=== PATIENT | female | born 1985 | race Caucasian/White ===

== ENCOUNTER → 2017-03-03 | Outpatient (CLI) | payer MEDICAID | LOC: FIMAGING 18:44 | PROVIDERS: ATTEND Internal Medicine | DX: M51.36 Other intervertebral disc degeneration, lumbar region (principal); M51.16 Intervertebral disc disorders with radiculopathy, lumbar region; M51.17 Intervertebral disc disorders with radiculopathy, lumbosacral region ==

== ENCOUNTER 2017-04-05 17:09 | Emergency (ER) | payer MEDICAID ==
[2017-04-05] MEDS ORDERED: DIAZEPAM 10 MG/2 ML SYR IVP ONE (17:28)
[2017-04-05] MEDS ORDERED: KETOROLAC 15 MG/1 ML SDV IVP ONE (17:28)
[2017-04-05] MEDS ORDERED: DEXAMETHASONE 4 MG/ML VIAL IVP ONE (17:28)
--- NOTE | 2017-04-05 17:33 | EDPHY ---
H & P Stated Complaint: BACK PAIN Source: Patient Exam Limitations: No limitations - Personal History LMP (Females 10-55): Over 28 Days Ago Current Tetanus/Diphtheria Vaccine: Yes Current Tetanus Diphtheria and Acellular Pertussis (TDAP): Yes - Medical/Surgical History Hx Asthma: No Hx Chronic Respiratory Disease: No Hx Diabetes: No Hx Cardiac Disease: No Hx Renal Disease: No Hx Cirrhosis: No Hx Alcoholism: No Hx HIV/AIDS: No Hx Splenectomy or Spleen Trauma: No - Social History Smoking Status: Never smoked Time Seen by Provider: 04/05/17 17:29 HPI/ROS: HPI: This is a 31-year-old female who presents with Chief Complaint: Lower back pain Location: Left lower back Quality: Cramping pain Duration: 1 day Signs and Symptoms: No bleeding, + radiation into left buttock and down to posterior left knee, no numbness, no weakness, no tingling, no incontinence, no decreased range of motion, no dysuria Timing: Acute on chronic Severity: Moderate to severe Context: Patient has a history of low back pain x3 months; extensively worked up outpatient by primary care provider and has been seen by doctor and her power of Neurosurgery. She is pending approval of lumbar GARRETT injections from her insurance company. MRI of the lumbar spine reviewed from 03/03/2017 showing lumbar degenerative disc disease as well as small eccentric leftward prolapse of disc at L5-S1. Patient reports that she has had a upper respiratory infection 4 days ago accompanied by coughing; seen by urgent care and given albuterol inhaler and cough medicine with moderate relief. The coughing episodes though exacerbated her lower back pain. Modifying Factors: Ibuprofen 3 times a day no relief. Comment: ROS: Constitutional: No fever, no chills, no weight loss Eyes: No blurred vision Respiratory: No shortness of breath, no cough Cardiovascular: No chest pain Gastrointestinal: No nausea, no vomiting no diarrhea Genitourinary: No dysuria Extremities: No myalgias Neurologic: No weakness, no numbness Skin: No rashes Hematologic: No bruising, no bleeding MEDICAL/SURGICAL/SOCIAL HISTORY: Tonsillectomy. (Ana Maria Barboza) - Physical Exam Exam: CONSTITUTIONAL: Tearful, anxious young adult white female awake and alert, no obvious distress HEENT: Atraumatic and normocephalic, PERRL, EOMI. Tympanic membranes clear. . Oropharynx clear, no exudate and moist pink mucosa. Airway patent. No lymphadenopathy. No meningismus. Cardiovascular: Normal S1/S2, regular rate, regular rhythm, without murmur rub or gallop. PULMONARY/CHEST: Symmetrical and nontender. Clear to auscultation bilaterally Good air movement. No accessory muscle usage. ABDOMEN: Soft, nondistended, nontender, no rebound, no guarding, no peritoneal signs, no masses or organomegaly. No CVAT. EXTREMITIES: 2/2 pulses, no deformities, no clubbing, no cyanosis or edema. BACK: Mild left lumbar reproducible paraspinous muscle tenderness; no paraspinous spasm. Back flexion 75, extension 30, bilateral lateral bending 35. Pain with left straight leg raise, no pain with right straight leg raise. Able to walk on heels and toes. NEUROLOGICAL: no focal neuro deficits. GCS 15. Light touch sensation intact SKIN: Warm and dry, no erythema. no rash. Good capillary refill. (Ana Maria Barboza) Constitutional: Initial Vital Signs Temperature (C) 36.6 C 04/05/17 17:11 Heart Rate 79 04/05/17 17:11 Respiratory Rate 16 04/05/17 17:11 Blood Pressure 123/77 H 04/05/17 17:11 O2 Sat (%) 97 04/05/17 17:11 O2 Delivery Mode Room Air Allergies/Adverse Reactions: latex Allergy (Verified 04/05/17 17:13) Home Medications: Medication Instructions Recorded methylPREDNISolone [Medrol Dose 1 each PO AD #0 ea 04/05/17 Arturo] oxyCODONE/APAP 5/325 [Percocet 1 - 2 tab PO Q4H PRN #12 tab 04/05/17 5/325 (*)] Medical Decision Making - Diagnostics Imaging Results: Imaging Impressions Chest X-Ray 04/05/17 17:48 Impression: No acute findings in the chest. Procedures: No indication to reimage. Urinalysis and urine ordered. Given IV Decadron, IV Toradol, IV Valium No signs of neurovascular compromise/tenting of skin/compartment syndrome/ extremities and joints examined above and below area of concern and are neurovascularly intact. (Ana Maria Barboza) ED Course/Re-evaluation: Back pain including but not limited to muscular pain, herniated disc, spine fracture, intra-abdominal causes and urinary tract infection. urinalysis, urine ordered 1740: Nurse came and advised that the patient now complains of spitting up bloody sputum intermittently with coughing. Chest x-ray ordered. afebrile. no systemic signs. no signs of hypoxia. 1800: End of Shift: Signed out to Dr. Fowler pending chest x-ray results. Disposition will most likely be discharge home. I have already written for Medrol Dosepak and Percocet as needed for severe breakthrough pain. (Ana Maria Barboza ) Differential Diagnosis: Back pain including but not limited to muscular pain, herniated disc, spine fracture, intra-abdominal causes and urinary tract infection. (Ana Maria Barboza) Other Provider: I was asked by Ana Maria Barboza to follow-up on CXR, and discharge home if normal. I reviewed this CXR, which was read by radiologist as normal. On discharge, the patient had additional questions so I spoke with her. She is still complaining of pain in her left lateral thigh and is sitting in a chair. She is concerned because the pain is not gone. I explained to her that sciatica-type LBP is rarely completely controlled in the ED and that she should follow through with established plan of oxycodone and Medrol dose-arturo as outpatient. She is comfortable with this plan. The patient's UA is abnormal, but I do not think this would likely cause thigh pain, and Jabari's diagnosis is of musculoskeletal back pain - we will send for culture rather than treat currently. (Stu Fowler) - Data Points Laboratory Results: 04/05/17 19:05 Urine Color PALE YELLOW Urine Appearance HAZY Urine pH 5.0 (5.0-7.5) Ur Specific Stevenson 1.005 (1.002-1.030) Urine Protein NEGATIVE (NEGATIVE) Urine Ketones NEGATIVE (NEGATIVE) Urine Blood 1+ H (NEGATIVE) Urine Nitrate NEGATIVE (NEGATIVE) Urine Bilirubin NEGATIVE (NEGATIVE) Urine Urobilinogen NEGATIVE EU EU (0.2-1.0) Ur Leukocyte Esterase 1+ H (NEGATIVE) Urine RBC 3-5 /hpf H /hpf (0-3) Urine WBC 5-10 /hpf H /hpf (0-3) Ur Epithelial Cells TRACE /lpf /lpf (NONE-1+) Urine Bacteria 4+ /hpf H /hpf (NONE SEEN) Urine Mucus TRACE /lpf /lpf (NONE-1+) Urine Glucose NEGATIVE (NEGATIVE) Medications Given: Discontinued Medications Dexamethasone (Decadron Injection) 8 mg IVP EDNOW ONE Stop: 04/05/17 17:29 Last Admin: 04/05/17 18:03 Dose: 8 mg Diazepam (Valium Injection) 5 mg IVP EDNOW ONE Stop: 04/05/17 17:29 Last Admin: 04/05/17 18:03 Dose: 5 mg Ketorolac Tromethamine (Toradol) 15 mg IVP EDNOW ONE Stop: 04/05/17 17:29 Last Admin: 04/05/17 18:02 Dose: 15 mg Departure - Departure Disposition: Home, Routine, Self-Care Clinical Impression: Acute exacerbation of chronic low back pain, Lumbar back pain with radiculopathy affecting left lower extremity, Intervertebral disc disorder Condition: Good Instructions: Oxycodone/Acetaminophen (By mouth), Acute Bronchitis (ED), Lumbar Radiculopathy (ED) Additional Instructions: Follow-up with primary care provider in 5-7 days if symptoms persist or worsen. Keep follow-up appointment with Dr. Fabian Mahan for Lumbar GARRETT. Referrals: Amber Shepherd MD [Primary Care Provider] - As per Instructions Fabian Mahan MD [Medical Doctor] - As per Instructions Prescriptions: methylPREDNISolone [Medrol Dose Arturo] 1 each PO AD #0 ea oxyCODONE/APAP 5/325 [Percocet 5/325 (*)] 1 - 2 tab PO Q4H PRN #12 tab PRN Reason: Pain, Severe
[2017-04-05 19:15] LABS: COLOR PALE YELLOW; LEUKOCYTE ESTERASE,URINE 1+ (NEGATIVE); NITRITE,URINE NEGATIVE (NEGATIVE)
[2017-04-05 19:17] LABS: BACTERIA 4+ /hpf (NONE SEEN); MUCUS TRACE /lpf (NONE-1+)
[2017-04-05] MEDS ORDERED: OXYCODONE/APAP 5/325MG PREPACK#4 BTL TAKEHOME ONE ×2 (20:10)
[2017-04-05 20:17] VITALS: BP 109/73; PULSE 62; RESP 20; TEMP 98.2; O2SAT 99
== END 2017-04-05 20:17 | disposition home or self-care (01) ==
DX: M51.16 Intervertebral disc disorders with radiculopathy, lumbar region (principal); G89.29 Other chronic pain; Z91.040 Latex allergy status
CPT/HCPCS: 96374; J1100; J1885

== ENCOUNTER 2017-04-10 19:50 | Emergency (ER) | payer MEDICAID ==
--- NOTE | 2017-04-10 21:42 | EDPHY ---
HPI/HX/ROS/PE/MDM Narrative: CHIEF COMPLAINT: Left leg pain and spasms HPI: The patient is a 31 y/o female complaining of left hamstring and calf pain and spasms worsening over the last few days. She has a history of back pain and had an MRI last month that showed degenerative disc disease and small disc herniation at L5-S1. She describes her symptoms progressing distally down her leg. She has associated tingling in her left foot. She was evaluated in the ED for this on 04/05/17, 5 days ago, and was discharged on Medrol with referral back to her neurologist. She denies incontinence, fever, or other acute complaints. She has an L5-S1 cortisone injection scheduled for next Thursday. REVIEW OF SYSTEMS: Aside from elements discussed in the HPI, a comprehensive 10-point review of systems was reviewed and is negative. PMH: Low back pain, MRI 03/03/17 showed degenerative disc disease and small disc herniation at L5-S1 SOCIAL HISTORY: Nonsmoker. Student. Lives in [place]. PHYSICAL EXAM: General:Patient is alert, in no acute distress. ENT:Eyes are normal to inspection. ENT inspection normal. Neck: Normal inspection. Full range of motion. Respiratory:No respiratory distress. Breath sounds normal bilaterally. Cardiovascular: Regular rate and rhythm. Strong peripheral pulses. Normal cap refill. Abdomen:The abdomen is nontender to palpation. There are no peritoneal signs. Back: Normal to inspection. No tenderness to palpation. Skin: Normal color. No rash. Warm and dry. Ecchymosis on left calf. Extremities: Normal appearance. Full range of motion. Neuro: Oriented x3. Normal motor function. Normal sensory function. Left le/5 dorsal/plantar flexion and 5/5 knee extension/flexion. Intact to light sensation. ED Course: Lumbar MRI and left lower extremity US ordered. Patient declined pain medication at this time. US is negative for DVT. Lumbar MRI: Worsening lumbar L5-S1 disc herniation. Neurology paged. MDM: This patient presents with worsening symptoms of lumbar radiculopathy. She describes "total weakness" of her LLE but clearly has both intact LTS as well as motor strength to all joints. I consulted NSG, Dr. Conner, who does not believe a neurosurgical emergency is present. I discussed options with the patient and offered admission to the hospital for pain control and NSG eval. She already has an appointment for epidural injection on Thursday, and would like to go home and make this apppointment. I agreed to write her for valium and Skelaxin, as her current regimen is not working for her. - Data Points Imaging Results: Imaging Impressions Extremity Venous Study 04/10/17 21:45 Impression: No deep venous thrombosis left leg. Results called and discussed with Stu Fowler MD at 04/10/2017 22:54. Imaging: Discussed imaging studies w/ instructional materials director Radiologist, I viewed and interpreted images myself General Time Seen by Provider: 04/10/17 21:36 Initial Vital Signs: Initial Vital Signs Temperature (C) 37.2 C 04/10/17 19:54 Heart Rate 68 04/10/17 19:54 Respiratory Rate 16 04/10/17 19:54 Blood Pressure 120/74 04/10/17 19:54 O2 Sat (%) 99 04/10/17 19:54 O2 Delivery Mode Room Air Allergies/Adverse Reactions: latex Allergy (Verified 04/05/17 17:13) Home Medications: Medication Instructions Recorded methylPREDNISolone [Medrol Dose 1 each PO AD #0 ea 04/05/17 Arturo] oxyCODONE/APAP 5/325 [Percocet 1 - 2 tab PO Q4H PRN #12 tab 04/05/17 5/325 (*)] Albuterol 04/10/17 Diazepam [Valium 5 MG (*)] 5 mg PO TID PRN #15 tab 04/10/17 Metaxalone [Skelaxin 800 mg (*)] 800 mg PO TID PRN #12 tab 04/10/17 Tessalon Danieles 04/10/17 Departure - Departure Disposition: Home, Routine, Self-Care Clinical Impression: Lumbar radiculopathy Condition: Good Instructions: Lumbar Radiculopathy (ED) Additional Instructions: Follow up with your back specialist as planned. Return for worsening of condition. Referrals: Amber Shepherd MD [Primary Care Provider] - As per Instructions Dipesh Conner MD [Medical Doctor] - As per Instructions Prescriptions: Diazepam [Valium 5 MG (*)] 5 mg PO TID PRN #15 tab PRN Reason: Spasms Metaxalone [Skelaxin 800 mg (*)] 800 mg PO TID PRN #12 tab PRN Reason: Spasms Report Scribed for: Stu Fowler Report Scribed by: Racquel Dutton Date of Report: 04/10/17 Time of Report: 21:42 Physician Review and Approval Statement: Portions of this note were transcribed by an ED scribe. I personally performed the history, physical exam, and medical decision making; and confirm the accuracy of the information in the transcribed note.
[2017-04-10] MEDS ORDERED: DIAZEPAM 5 MG PREPACK#4 BTL TAKEHOME ONE (23:29)
[2017-04-10 23:46] VITALS: BP 111/72; PULSE 72; RESP 18; TEMP 98.2; O2SAT 95
== END 2017-04-10 23:52 | disposition home or self-care (01) ==
DX: M54.16 Radiculopathy, lumbar region (principal)

== ENCOUNTER 2017-04-27 10:28 | Day surgery (SDC) | payer MEDICAID ==
--- NOTE | 2017-04-27 10:32 | PDHPUP ---
History & Physical Update H&P update statement: This history and physical update is based on an assessment of the patient which was completed after admission or registration (within 24 hours), but prior to the surgery/procedure. History and Physical has been updated and dictated as of 04/27/2017 1032am.
[2017-04-27] MEDS ORDERED: LIDOCAINE 1% 2 ML INJ ID PRN (10:46)
[2017-04-27] MEDS ORDERED: ceFAZolin 2 GM/DEXTROSE 100 ML IV ONE (10:46)
[2017-04-27] MEDS ORDERED: LR 1,000 ML IV ONE (10:46)
[2017-04-27] MEDS ORDERED: BUPIVACAINE 0.25% 30 ML SDV ONE ×2 (11:15→13:25)
[2017-04-27] MEDS ORDERED: BACITRACIN ZINC 14.2 GM OINTTUBE TP ONE (11:15)
[2017-04-27] MEDS ORDERED: CHLORHEXIDINE GLUC HIBICLENS 118 ML BTL TP ONE (11:15)
[2017-04-27] MEDS ORDERED: BACITRACIN 50,000 UNITS/10 ML SYR IRR ONE (11:15)
--- NOTE | 2017-04-27 11:26 | GHP ---
[f rep st] HISTORY AND PHYSICAL DATE OF ADMISSION: 04/27/2017 HISTORY OF PRESENT ILLNESS: The patient is a 31-year-old female, who was seen in our clinic on March [address] Mahan with a 12 week history of low back pain and left buttock pain. She had some numbness that radiated to the bottom of her left foot and down the back of her leg. Her back pain was, at that time, worse than her buttock and leg pain and she rated it as an 8/10. She had tried chiropractor, acupuncture, PT, bracing and NSAIDs, none of which gave her any relief. Her MRI shows DDD at L3-4, 4-5 and 5-1 and a disk bulge that is worse at L5-S1 on the left with some lateral recess stenosis and slight displacement of the left S1 nerve. At that time, she was sent for physical therapy and recommended continued use of NSAIDs and was to call with any new or worsening symptoms. We were to see her back in a few weeks to see how she was doing. In the meantime, she was then seen at [facility] ER on 04/10/2017, complaining of left hamstring and calf pain and spasms that were worsening over the last few days. She also stated that her pain down her left leg had progressed and was now worse than her back pain. She also had some worsening weakness in her left foot and was unable to stand up on her toes and had calf weakness as well. This was new for her. She denied any loss of bowel or bladder control or saddle anesthesia. A new MRI was performed during that stay and that showed a progressive worsening lumbar L5-S1 disk herniation. Neurosurgery was consulted and did offer to admit the patient. However, the patient decided to go home with pain control and more time. She then called into the office last week and stated that her weakness was getting worse. She did then have an L5-S1 epidural steroid injection that helped somewhat with the pain but did not improve any of her weakness and wore off in the next few days. We talked extensively about her options including continuing with conservative treatment with PT, more injections, and giving this more time and we also discussed surgical decompression of the herniated disk. All risks and benefits, and alternatives were discussed and the patient at this time would like to proceed for surgery. She presents electively today for an L5-S1 left- sided hemilaminectomy and microdiskectomy. REVIEW OF SYSTEMS: All pertinent positive review of systems are as stated in the HPI and are otherwise negative than stated in the HPI. PAST MEDICAL HISTORY: History of low back pain and a small disk herniation at L5-S1 that was found in February of 2017. PAST SURGICAL HISTORY: Significant for ACL right knee reconstruction in 2010 and tonsillectomy in 1989. CURRENT MEDICATIONS: Include NSAIDs, ibuprofen as needed. She also takes calcium, glucosamine and cranberry. SOCIAL HISTORY: Patient denies any history of smoking. She admits to alcohol consumption socially. FAMILY HISTORY: Negative for any significant illnesses, specifically any neurological surgery. VITAL SIGNS: To be collected at the time of admission. PHYSICAL EXAM: CONSTITUTIONAL: This is a well developed, well nourished, female in no acute distress. HEENT: Head is normocephalic, atraumatic. Pupils are equal, react to light and accommodation. Extraocular muscles are intact. NEUROLOGIC: Cranial nerves 2-12 are grossly intact. She is moving all extremities x4 and with equal strength. Motor: Bilateral lower extremities are 5/5 and equal in strength except for the left lower extremity does have weakness on dorsiflexion at 4/5 and sensation is diminished over the lateral side of the calf. MUSCULOSKELETAL: The patient also has positive SI joint provocative tests including thigh thrust, FLORIAN, [place]. LABORATORY DATA: There is no current laboratory data for my review. ASSESSMENT AND PLAN: This is a 31-year-old female with a history of low back pain over the last couple of months and has increased in severity recently and now includes left leg pain in the S1 distribution along with calf weakness and plantar flexion weakness. She has had 2 MRIs in the past 3 months that show a progressive worsening of the left-sided L5-S1 disk herniation that is compressing and has some displacement of the left S1 nerve root that are likely causing her symptoms. She has participated in physical therapy as well as had injections and while these provided some benefit, they did not have any lasting benefit and her increasing weakness is concerning to her as well as us and we have elected to proceed with surgery today in the form of a left L5-S1 hemilaminotomy and microdiskectomy at L5-S1. All risks and benefits, and alternatives were discussed. All consents will be signed on the day of surgery. /[id number]/MODL MTDD
[2017-04-27] MEDS ORDERED: THROMBIN (BOVINE) 5,000 UNIT VIAL TP ONE (11:54)
[2017-04-27] MEDS ORDERED: MIDAZOLAM 2 MG/2 ML VIAL IVP ONE (12:01)
--- NOTE | 2017-04-27 12:03 | PDANEPAE ---
ANE Past Medical History - Cardiovascular History Hx Hypertension: No Hx Arrhythmias: No Hx Chest Pain: No Hx Coronary Artery / Peripheral Vascular Disease: No Hx CHF / Valvular Disease: No Hx Palpitations: No - Pulmonary History Hx COPD: No Hx Asthma/Reactive Airway Disease: No Hx Recent Upper Respiratory Infection: No Hx Oxygen in Use at Home: No Hx Sleep Apnea: No Sleep Apnea Screening Result - Last Documented: Negative - Neurologic History Hx Cerebrovascular Accident: No Hx Seizures: No Hx Dementia: No - Endocrine History Hx Diabetes: No Hypothyroid: No Hyperthyroid: No Obesity: no - Renal History Hx Renal Disorders: No - Liver History Hx Hepatic Disorders: No - Neurological & Psychiatric Hx Hx Neurological and Psychiatric Disorders: No Neurological / Psychiatric History Comment: "compressed nerve" on left with foot /leg weakness - Cancer History Hx Cancer: No - Congenital Disorder History Hx Congenital Disorders: No - GI History GERD: no Hx Gastrointestinal Disorders: No - Chronic Pain History Chronic Pain: Yes - Surgical History Prior Surgeries: T&A ANE Review of Systems Review of Systems: - Exercise capacity Exercise capacity: limited by disability METS (RN): 4 METS ANE Patient History - Allergies Allergies/Adverse Reactions: latex Allergy (Verified 04/05/17 17:13) - Home Medications Home Medications: ACETAMINOPHEN 04/24/17 [Last Taken 04/26/17 15:00] Gabapentin 04/24/17 [Last Taken 04/20/17] Ibuprofen 04/24/17 [Last Taken 04/22/17] - NPO status NPO Since - Liquids (Date): 04/27/17 NPO Since - Liquids (Time): 08:00 NPO Since - Solids (Date): 04/26/17 NPO Since - Solids (Time): 20:00 - Anes Hx Anes Hx: no prior problems - Smoking Hx Smoking Status: Never smoked - Family Anes Hx Family Hx Anesthesia Complications: none ANE Labs/Vital Signs - Vital Signs Blood Pressure: 113/69 Heart Rate: 67 Respiratory Rate: 18 O2 Sat (%): 97 Height: 182.88 cm Weight: 58.967 kg ANE Physical Exam - Airway Neck exam: FROM Mallampati Score: Class 1 Mouth exam: normal dental/mouth exam - Pulmonary Pulmonary: no respiratory distress, no rales or rhonchi, clear to auscultation - Cardiovascular Cardiovascular: regular rate and rhythym - ASA Status ASA Status: I (faint systolic murmur?) ANE Anesthesia Plan Anesthesia Plan: general endotracheal anesthesia Total IV Anesthesia: No
[2017-04-27] MEDS ORDERED: fentaNYL 100 MCG/2 ML INJ ONE ×3 (12:14→15:19)
[2017-04-27] MEDS ORDERED: PROPOFOL/EMULSION 500 MG/50 ML BOTTLE IV ONE (12:15)
[2017-04-27] MEDS ORDERED: DEXAMETHASONE 4 MG/ML VIAL ONE (12:16)
[2017-04-27] MEDS ORDERED: LIDOCAINE 2% 5 ML SDV ONE (12:18)
[2017-04-27] MEDS ORDERED: NALOXONE HCL 0.4 MG/ML INJ IVP PRN (13:12)
[2017-04-27] MEDS ORDERED: OXYCODONE/APAP 5/325 TAB PO PRN ×2 (13:12→15:02)
[2017-04-27] MEDS ORDERED: HYDROmorphONE/DILAUDID 1 MG/ML INJ IVP PRN (13:12)
[2017-04-27] MEDS ORDERED: HYDROCODONE/APAP 5/325 TAB PO PRN (13:12)
[2017-04-27] MEDS ORDERED: D5W LR 500 ML IV PRN (13:12)
[2017-04-27] MEDS ORDERED: PROMETHAZINE HCL 25 MG/ML INJ IVP PRN (13:12)
[2017-04-27] MEDS ORDERED: MEPERIDINE 25 MG/ML SYR IVP PRN (13:12)
[2017-04-27] MEDS ORDERED: ONDANSETRON 4 MG/2 ML VIAL IVP PRN ×2 (13:12→14:05)
[2017-04-27] MEDS ORDERED: fentaNYL 100 MCG/2 ML INJ IVP PRN (13:12)
[2017-04-27] MEDS ORDERED: KETOROLAC 30 MG/1 ML SDV ONE (13:46)
--- NOTE | 2017-04-27 14:03 | POSTOPPROG ---
Post Op Note Date of Operation: 04/27/17 Surgeon: Fabian Mahan Dials Inspector: Marielle Haji PA-C Anesthesia: GET(General Endotracheal) Pre-op Diagnosis: Lumbar radiculopathy Post-op Diagnosis: same Procedure: Left L5/S1 paty-laminotomy and miscrodiscectomy Inf/Abcess present in the surg proc area at time of surgery?: No Depth: Organ Space Complications: None, see dictated operative report SOAP Progress Note Assessment/Plan: Assessment: Plan: 04/27/17 14:00 S: In PACU, Stable with expected back pain. O: NAD, VSS CN II-XII grossly intact PERRL EOMI BLE 5/5= Sensation intact to lt touch Incision c/d/i- dermabond A: 31 yo female sp left L5/S1 paty-lami and microdiscectomy P: -DC home when meets PACU criteria - No bending at the waist, lifting, more than 10-20 pounds -Advance diet as tolerated -Follow up in 2-[address] Mahan Objective: Vital Signs Temp Pulse Resp BP Pulse Ox 36.5 C 67 18 113/69 97 04/27/17 11:03 04/27/17 12:03 04/27/17 12:03 04/27/17 12:03 04/27/17 12:03
[2017-04-27] MEDS ORDERED: METHOCARBAMOL 750 MG TAB PO PRN (14:05)
[2017-04-27] MEDS ORDERED: KETOROLAC 30 MG/1 ML SDV IVP ONE (14:05)
[2017-04-27] MEDS ORDERED: ONDANSETRON DISINTEGRATING 4 MG TAB PO PRN (14:05)
--- NOTE | 2017-04-27 15:07 | GOP ---
[f rep st] OPERATIVE REPORT DATE OF OPERATION: 04/27/2017 SURGEON: Fabian Mahan MD CAGE UNLOADER: Marielle Haji PA-C ANESTHESIA: General endotracheal. 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 POSTOPERATIVE DIAGNOSIS: L5-S1 herniated nucleus pulposus with left S1 radiculopathy. PROCEDURE PERFORMED: 1. Left L5 hemilaminotomy, medial facetectomy, microdiskectomy. 2. Use of the operative microscope. 3. Intraoperative neurophysiological monitoring including somatosensory-evoked potentials and free r un electromyogram. FINDINGS: Successful microdiskectomy. SPECIMENS: There were no specimens. ESTIMATED BLOOD LOSS: Less than 10 cc. INDICATIONS: The patient is a 31-year-old woman with left S1 radiculopathy. An MRI showed a large d isk herniation at L5-S1 on the left. She has tried multiple conservative options including steroid i njections, physical therapy, and anti-inflammatories, and is still having significant pain and disabi lity. She now presents for elective microdiskectomy. DESCRIPTION OF PROCEDURE: Informed consent was obtained. The patient was brought to the operating r oom and a formal time-out was performed, identifying the patient by name, medical record number, and date of . Preoperative antibiotics were given. The endotracheal tube was placed and general en dotracheal anesthesia was smoothly induced. All appropriate leads were placed for intraoperative zahida atosensory evoked potentials and free run EMG. The patient was then turned to the prone position on the John frame with the lumbar spine placed in flexion. All appropriate pressure points were padde d and checked. A spinal needle was placed and the level of incision was marked using a lateral fluor oscopic x-ray. At this point, the lumbar region was prepped and draped in the normal sterile fashion. 6 cc of 0.25% Marcaine with epinephrine was infiltrated in the skin for hemostasis. The skin incision made using a 10 blade and the subcutaneous tissues were dissected using monopolar electrocautery. The fascia wa s opened just to the left of the midline and the paraspinous muscles were taken down from the L5 spin ous process and lamina. A marker was placed under the L5 lamina, and another lateral radiograph agai n confirmed the appropriate level. At this point, the operative microscope was brought on the field, and the remainder of the procedure was performed under high-power magnification. First, a high-speed drill was used to drill a hemilami notomy defect in the L5 lamina with care to preserve a large amount of the pars and medial facet. Th e Kerrison punch was then used to remove the medial 3rd of the medial facet, and the yellow ligament was also removed exposing the dura and the S1 nerve root. The S1 nerve root was then retracted media lly, and the disk was visualized. Using an 11-blade, a small annulotomy was made in the disk and ner ve hooks and curettes were then used to free the disk from surrounding tissues. A large free fragmen t measuring about 1 x 2 cm was palpated and this was removed in 1 piece. This allowed for excellent decompression of the nerve root. We then were able to reach into the disk space and remove a few mor e free fragments, but there was nothing else left that was compressive. At several times, we felt in to the disk space and under the anulus to be sure there were no more further fragments. Once the nerve was completely decompressed, a small piece of Marcaine-soaked Gelfoam was placed over the nerve briefly for postoperative analgesia. At this point, all the bleeding was controlled with bipolar electrocautery. The Gelfoam was removed. The fascia was closed in the midline using interrupted 0 Vicryl. The deep dermis was closed using interrupted 2-0 Vicryl, and the skin was closed using Dermabond. The patient was then turned back in to the supine position. She was extubated, she was awakened in the operating room, with a normal lizzy rologic exam. She was transferred to the PACU in stable condition with no complications. FLUIDS AND URINE OUTPUT: Per the anesthesia record. COUNTS: All sponge and needle counts were correct at the end of the case. DRAINS: There were no drains. /[id number]/MODL
[2017-04-27] MEDS ORDERED: HYDROCODONE/APAP 5/325 TAB ONE (15:55)
[2017-04-27 16:21] VITALS: PULSE 65; RESP 16; TEMP 98.1
[2017-04-27 17:07] VITALS: BP 112/64; O2SAT 93
== END 2017-04-27 17:38 | disposition home or self-care (01) ==
LOC: FSGY 10:28
PROVIDERS: ATTEND Neurological Surgery
PROC: 4A1004G Monitoring of Central Nervous Electrical Activity, Intraoperative, Open Approach (ICD-10-PCS; principal; 2017-04-27 12:00)
PROC: 01NB0ZZ Release Lumbar Nerve, Open Approach (ICD-10-PCS; principal; 2017-04-27 12:00)
PROC: 0QB00ZZ Excision of Lumbar Vertebra, Open Approach (ICD-10-PCS; principal; 2017-04-27 12:00)
DX: M51.26 Other intervertebral disc displacement, lumbar region (principal); M51.36 Other intervertebral disc degeneration, lumbar region; M54.16 Radiculopathy, lumbar region
CPT/HCPCS: J0171; J0690; J1100; J1885; J2250; J2704; J3010

== ENCOUNTER → 2017-11-23 | Outpatient (CLI) | payer OTHER | LOC: CIMAGING 12:10 | PROVIDERS: ATTEND Neurological Surgery | DX: M54.9 Dorsalgia, unspecified (principal) | CPT/HCPCS: 72100-PO ==

== ENCOUNTER 2018-04-26 05:12 | Day surgery (SDC) | payer OTHER ==
[2018-04-26] MEDS ORDERED: GABAPENTIN 300 MG CAP PO ONE (05:45)
[2018-04-26] MEDS ORDERED: ceFAZolin 2 GM/DEXTROSE 100 ML IV ONE (05:45)
[2018-04-26] MEDS ORDERED: ACETAMINOPHEN 500 MG TAB PO ONE (05:45)
[2018-04-26] MEDS ORDERED: LR 1,000 ML IV ONE ×2 (05:47→06:02)
[2018-04-26] MEDS ORDERED: LIDOCAINE 1% 2 ML INJ ID PRN (05:47)
[2018-04-26] MEDS ORDERED: MIDAZOLAM 2 MG/2 ML VIAL IVP ONE (06:55)
--- NOTE | 2018-04-26 06:57 | PDANEPAE ---
ANE History of Present Illness 32 year old with L5-S1 HNP ANE Past Medical History - Cardiovascular History Hx Hypertension: No Hx Arrhythmias: No Hx Chest Pain: No Hx Coronary Artery / Peripheral Vascular Disease: No Hx CHF / Valvular Disease: No Hx Palpitations: No - Pulmonary History Hx COPD: No Hx Asthma/Reactive Airway Disease: No Hx Recent Upper Respiratory Infection: No Hx Oxygen in Use at Home: No Hx Sleep Apnea: No Pulmonary History Comment: BRONCHITIS 12/2017 - Neurologic History Hx Cerebrovascular Accident: No Hx Seizures: No Hx Dementia: No - Endocrine History Hx Diabetes: No - Renal History Hx Renal Disorders: No - Liver History Hx Hepatic Disorders: No - Neurological & Psychiatric Hx Hx Neurological and Psychiatric Disorders: Yes Neurological / Psychiatric History Comment: "compressed nerve" on left with foot /leg weakness. CONCUSSION 2010 NO RESIDUAL ISSUES CURRENTLY- - Cancer History Hx Cancer: No - Congenital Disorder History Hx Congenital Disorders: No - GI History Hx Gastrointestinal Disorders: No - Other Health History Other Health History: DDD. MUSCLE SPASMS - Chronic Pain History Chronic Pain: Yes (LOWER LUMBAR REGION N/T LT LEG) - Surgical History Prior Surgeries: MICRODISKECTOMY 04/2017. RT ACL REPAIR 2009. T&A ANE Review of Systems Review of systems is: negative Review of Systems: - Exercise capacity METS (RN): 4 METS ANE Patient History - Allergies Allergies/Adverse Reactions: fentanyl Allergy (Verified 04/22/18 16:51) SKIN IRRITATION AT IV SITE AND FELT LIKE SKIN ON FIRE latex Allergy (Verified 04/22/18 16:50) IRRITATION/REDNESS - Home Medications Home Medications: ACETAMINOPHEN PO PRN 04/24/17 [Last Taken 04/05/18] Ibuprofen PO PRN 04/24/17 [Last Taken 04/05/18] - NPO status NPO Since - Liquids (Date): 04/26/18 NPO Since - Liquids (Time): 05:57 NPO Since - Solids (Date): 04/25/18 NPO Since - Solids (Time): 20:30 - Anes Hx Anes Hx: no prior problems - Smoking Hx Smoking Status: Never smoked - Family Anes Hx Family Hx Anesthesia Complications: none ANE Labs/Vital Signs - Vital Signs Blood Pressure: 102/64 Heart Rate: 68 Respiratory Rate: 16 O2 Sat (%): 98 Height: 180.34 cm Weight: 63.503 kg ANE Physical Exam - Airway Neck exam: FROM, spinal fusion Mouth exam: normal dental/mouth exam - Pulmonary Pulmonary: no respiratory distress - Cardiovascular Cardiovascular: regular rate and rhythym - ASA Status ASA Status: II ANE Anesthesia Plan Anesthesia Plan: general endotracheal anesthesia
[2018-04-26] MEDS ORDERED: CHLORHEXIDINE GLUC HIBICLENS 118 ML BTL TP ONE (06:59)
[2018-04-26] MEDS ORDERED: BUPIVACAINE 0.25% 30 ML SDV ONE (07:00)
[2018-04-26] MEDS ORDERED: EPINEPHrine 1 MG/ML INJ ONE (07:00)
[2018-04-26] MEDS ORDERED: THROMBIN (BOVINE) 5,000 UNIT VIAL TP ONE ×2 (07:00→07:51)
[2018-04-26] MEDS ORDERED: BACITRACIN 50,000 UNITS/10 ML SYR IRR ONE (07:00)
[2018-04-26] MEDS ORDERED: AVITENE POWDER 1 GM JAR TP ONE (07:02)
[2018-04-26] MEDS ORDERED: REMIFENTANIL HCL 1 MG VIAL ONE (07:13)
[2018-04-26] MEDS ORDERED: PROPOFOL 200 MG/20 ML VIAL ONE (07:13)
[2018-04-26] MEDS ORDERED: KETAMINE 200 MG/20 ML VIAL ONE (07:13)
[2018-04-26] MEDS ORDERED: PROPOFOL/EMULSION 500 MG/50 ML BOTTLE IV ONE (07:13)
[2018-04-26] MEDS ORDERED: ROCURONIUM 50 MG/5 ML VIAL ONE (07:14)
[2018-04-26] MEDS ORDERED: LIDOCAINE 2% 2 ML INJ ONE (07:14)
--- NOTE | 2018-04-26 07:17 | PDHPUP ---
History & Physical Update H&P update statement: This history and physical update is based on an assessment of the patient which was completed after admission or registration (within 24 hours), but prior to the surgery/procedure. H&P update: H&P reviewed & patient examined, no change in patient's condition since H&P completed
[2018-04-26] MEDS ORDERED: NALOXONE HCL 0.4 MG/ML INJ IVP PRN (08:53)
[2018-04-26] MEDS ORDERED: ONDANSETRON 4 MG/2 ML VIAL IVP PRN (08:53)
[2018-04-26] MEDS ORDERED: PROMETHAZINE HCL 25 MG/ML INJ IVP PRN (08:53)
--- NOTE | 2018-04-26 09:08 | POSTANESTH ---
Post Anesthetic Evaluation Cardiovascular Status: Normal, Stable, Tx Over/Under Hydration Level of Consciousness/Mental Status: Can Participate in Eval Pain Control: Adequate, Prn Tx Ordered Nausea/Vomiting Control: Adequate, Prn Tx Ordered Complications Possibly Related to Anesthesia: None Noted
[2018-04-26] MEDS ORDERED: HYDROCODONE/APAP 5/325 TAB PO PRN (09:09)
[2018-04-26] MEDS ORDERED: METHOCARBAMOL 1,000 MG in NS 50 ML IVP PRN (09:09)
--- NOTE | 2018-04-26 09:19 | PDANEPAE ---
ANE History of Present Illness 32 year with lumbar spinal stenosis ANE Past Medical History - Cardiovascular History Hx Hypertension: No Hx Arrhythmias: No Hx Chest Pain: No Hx Coronary Artery / Peripheral Vascular Disease: No Hx CHF / Valvular Disease: No Hx Palpitations: No - Pulmonary History Hx COPD: No Hx Asthma/Reactive Airway Disease: No Hx Recent Upper Respiratory Infection: No Hx Oxygen in Use at Home: No Hx Sleep Apnea: No Pulmonary History Comment: BRONCHITIS 12/2017 - Neurologic History Hx Cerebrovascular Accident: No Hx Seizures: No Hx Dementia: No - Endocrine History Hx Diabetes: No - Renal History Hx Renal Disorders: No - Liver History Hx Hepatic Disorders: No - Neurological & Psychiatric Hx Hx Neurological and Psychiatric Disorders: Yes Neurological / Psychiatric History Comment: "compressed nerve" on left with foot /leg weakness. CONCUSSION 2010 NO RESIDUAL ISSUES CURRENTLY- - Cancer History Hx Cancer: No - Congenital Disorder History Hx Congenital Disorders: No - GI History Hx Gastrointestinal Disorders: No - Other Health History Other Health History: DDD. MUSCLE SPASMS - Chronic Pain History Chronic Pain: Yes (LOWER LUMBAR REGION N/T LT LEG) - Surgical History Prior Surgeries: MICRODISKECTOMY 04/2017. RT ACL REPAIR 2009. T&A ANE Review of Systems Review of systems is: negative Review of Systems: - Exercise capacity METS (RN): 4 METS ANE Patient History - Allergies Allergies/Adverse Reactions: fentanyl Allergy (Verified 04/22/18 16:51) SKIN IRRITATION AT IV SITE AND FELT LIKE SKIN ON FIRE latex Allergy (Verified 04/22/18 16:50) IRRITATION/REDNESS - Home Medications Home Medications: ACETAMINOPHEN PO PRN 04/24/17 [Last Taken 04/05/18] Ibuprofen PO PRN 04/24/17 [Last Taken 04/05/18] - NPO status NPO Since - Liquids (Date): 04/26/18 NPO Since - Liquids (Time): 05:57 NPO Since - Solids (Date): 04/25/18 NPO Since - Solids (Time): 20:30 - Anes Hx Anes Hx: no prior problems - Smoking Hx Smoking Status: Never smoked - Family Anes Hx Family Hx Anesthesia Complications: none ANE Labs/Vital Signs - Vital Signs Blood Pressure: 102/64 Heart Rate: 68 Respiratory Rate: 16 O2 Sat (%): 98 Height: 180.34 cm Weight: 63.503 kg ANE Physical Exam - Airway Neck exam: FROM Mallampati Score: Class 1 Mouth exam: normal dental/mouth exam - Pulmonary Pulmonary: no respiratory distress - Cardiovascular Cardiovascular: regular rate and rhythym - ASA Status ASA Status: II ANE Anesthesia Plan Anesthesia Plan: general endotracheal anesthesia
[2018-04-26] MEDS ORDERED: HYDROmorphONE/DILAUDID 2 MG/ML INJ ONE (09:56)
[2018-04-26] MEDS: HYDROmorphONE/DILAUDID 2 MG/ML INJ IVP PRN ×2 (10:00→10:13)
--- NOTE | 2018-04-26 10:23 | GOP ---
DATE OF OPERATION: 04/26/2018 SURGEON: Fabian Mahan MD KITCHENWHERE MAKER: Marielle Haji PA-C ANESTHESIA: General endotracheal. All neurophysiologic monitoring was stable throughout the case. PREOPERATIVE DIAGNOSIS: Recurrent left L5-S1 disk herniation with S1 radiculopathy. POSTOPERATIVE DIAGNOSIS: Recurrent left L5-S1 disk herniation with S1 radiculopathy. PROCEDURE PERFORMED: 1. Redo left L5-S1 hemilaminotomy, medial facetectomy, microdiskectomy. 2. Use of stealth/O arm stereotactic navigation for tubular retractor placement. 3. Use of the operative microscope. 4. Use of intraoperative neurophysiologic monitoring, including somatosensory evoked potentials and EMG. FINDINGS: Successful microdiskectomy. SPECIMENS: There were no specimens. ESTIMATED BLOOD LOSS: 25 cc. DESCRIPTION OF PROCEDURE: After informed consent was obtained from the patient, the patient was brou ght to the operating room and a formal time-out was performed, identifying the patient by name, medic al record number, and date of . Preoperative antibiotics were given. The endotracheal tube was placed and general endotracheal anesthesia was smoothly induced. All appropriate leads were placed for intraoperative neurophysiologic monitoring. The patient was then turned to the prone position on the Cj table. All appropriate pressure points were padded and checked. The lumbar region was prepped and draped in normal sterile fashion. A stab incision was made over the right iliac crest, a nd the percutaneous navigation pin was placed into the superior aspect of the iliac crest. The navig ation frame was attached and a low-dose O arm spin was obtained showing the relevant anatomy from L3- S1. Using navigation, we then planned the area of the incision and actually were able to use the old incision in the midline angling toward the L5-S1 disk space. The skin incision was made using a 10 blade. The subcutaneous tissues were dissected using monopolar electrocautery. The fascia was opene d just to the left of the midline. The navigated metrics dilators were then used to dilate the 18 m m tube, docked onto the L5 lamina. An 18 mm x 5 cm quadrant retractor was then placed, docked onto t he L5 lamina and the operative microscope was then brought on the field and the remainder of the proc edure was performed under high-power magnification. First, using the navigation, we were able to loc torres how much more of the medial facet could be removed and there was a good 2-3 mm of bone on the l ateral aspect that we had removed using a high-speed drill with a viky bur. The upper aspect of the S1 lamina was also drilled and the yellow ligament was detached in this area. This allowed us to visualize the S1 nerve root without going through the previous scar tissue at the laminotomy site. The yellow ligament was then removed from the lateral recess over the medial facet joint completely f reeing the S1 nerve. The S1 nerve was then freed anteriorly from the scar tissue around the disk spa ce and was retracted medially. There was a large subligamentous disk bulge that was visualized and a small opening in the ligament allowed us to remove this disk measuring about 5 mm x 1 cm. This free d up the space quite a bit and relieved the compression. Using nerve hooks and pituitary forceps, w e then were able to perform a microdiskectomy removing all the subligamentous disk and flattening the area at the disk space. We palpated underneath the nerve using a nerve hook and no further compress ion was felt. The nerve was widely decompressed and was completely free. All neurophysiologic monit oring remained stable. At this point, the wound was copiously irrigated using bacitracin irrigation. A small amount of Gelfoam slurry was placed in the lateral recess for bleeding control. Some local anesthetic was placed over the nerve root and then in the subcutaneous tissues. The fascia was clos ed using interrupted 0 Vicryl sutures. The deep dermis was closed using interrupted 2-0 Vicryl sutur es and the skin was closed using Dermabond. The patient was then turned back in the supine position. She was extubated. She was transferred to the PACU in stable condition. There were no operative c omplications. I was scrubbed and present for the entire procedure. All sponge and needle counts wer e correct at the end of the case. BRIEF CLINICAL HISTORY: Amairani Batres is a 32-year-old woman who had presented last year with left S1 radiculopathy. We did a microdiskectomy on her at that time, and she did have improvement, wilbert ahuja, her symptoms recurred shortly thereafter. Another MRI was obtained and this again showed a disk h erniation at L5-S1 on the left with some S1 nerve compression. She attempted conservative management , including injections, physical therapy, but her symptoms have been persistent. She returns today f or a redo L5-S1 micro disc. FLUIDS AND URINE OUTPUT: Per the anesthesia record. DRAINS: There were no drains. /[id number]/MODL
[2018-04-26 12:05] VITALS: BP 111/62
== END 2018-04-26 12:15 | disposition home or self-care (01) ==
LOC: FSGY 05:12
PROVIDERS: ATTEND Neurological Surgery
PROC: 01NF0ZZ Release Sciatic Nerve, Open Approach (ICD-10-PCS; principal; 2018-04-26 07:15)
DX: M51.17 Intervertebral disc disorders with radiculopathy, lumbosacral region (principal)
CPT/HCPCS: J0171; J0690; J1170; J2250; J2704; J2800

== ENCOUNTER → 2018-10-05 | Outpatient (CLI) | payer OTHER | LOC: FIMAGING 19:22 | PROVIDERS: ATTEND Physician Assistant | DX: M54.16 Radiculopathy, lumbar region (principal) ==